=== PATIENT | male | born 1995 | race Caucasian/White ===

== ENCOUNTER 2022-10-15 16:22 | Outpatient (CLI) | payer OTHER, SELFPAY ==
[2022-10-15 16:57] LABS: Basophils Percent Auto 0.7 % (0.2-1.2); Eosinophils Absolute Auto 0.2 K/mm3 (0-0.3); Hematocrit 49.8 % (42.0-52.0); Hemoglobin 17.1 g/dL (14.0-18.0); Immature Granulocyte Absolute 0.01 K/mm3 (0.00-0.031); Immature Granulocyte Percent A 0.2 % (0-0.5); Lymphocytes Absolute Auto 2.27 K/mm3 (0.9-3.2); Lymphocytes Percent Auto 37.5 % (18.3-44.2); Mean Corpuscular HGB Conc 34.3 g/dl (32-36); Mean Corpuscular Volume 84.4 fl (80-100); Mean Platelet Volume 10.4 fl (7.4-10.4); Monocytes Absolute Auto 0.5 K/mm3 (0.1-0.6); Monocytes Percent Auto 8.4 % (2.6-8.5); Neutrophils Percent Auto 50.2 % (45.5-73.1); Platelet Count Result 243 k/mm3 (150-375); Red Cell Distribution Width 12.1 % (11.5-14.5); White Blood Count 6.1 K/mm3 (4.5-10.0)
[2022-10-15 17:07] LABS: Alanine Aminotransferase 77 U/L (6-50); Albumin Level 4.5 g/dL (3.5-5.1); Alkaline Phosphatase 63 U/L (38-126); Anion Gap 6 mmol/L (8-16); Aspartate Amino Transferase 43 U/L (17-59); Bilirubin,Total 0.7 mg/dL (0.2-1.3); Blood Urea Nitrogen 13 mg/dL (9-20); Calcium 9.2 mg/dL (8.4-10.2); Carbon Dioxide 25 mmol/L (22-30); Chloride 105 mmol/L (98-107); Estimated Glomerular Filt Rate > 60; Glucose 85 mg/dL (65-110); Potassium 3.9 mmol/L (3.4-5.0); Sodium 136 mmol/L (137-145)
[2022-10-18 13:40] LABS: Erythropoietin (EPO) 12.2 mIU/mL (2.6-18.5)
== END 2022-10-15 16:23 | disposition home or self-care (01) ==
LOC: ANHLAB 16:27
PROVIDERS: PCP Internal Medicine; Visit Provider Internal Medicine Hematology & Oncology
DX: D75.0 Familial erythrocytosis (principal)
CPT/HCPCS: 36415; 80053; 82668; 85025

== ENCOUNTER 2022-10-30 14:44 | Outpatient (CLI) | payer OTHER, SELFPAY ==
[2022-11-05 11:52] LABS: CALR Exon 9 Mutation Not Detected (Not Detected); CSF3R Exon 14/17 Mutation Not Detected (Not Detected); JAK2 Exon 12 Mutation Not Detected (Not Detected); JAK2 V617F Mutation Not Detected (Not Detected); MPL Exon 10 Mutation Not Detected (Not Detected); Specimen Source Blood
== END 2022-10-30 14:45 | disposition home or self-care (01) ==
LOC: ANHLAB 14:47
PROVIDERS: PCP Internal Medicine; Visit Provider Internal Medicine Hematology & Oncology
DX: D75.0 Familial erythrocytosis (principal)
CPT/HCPCS: 36415; 81219; 81270; 81279; 81339; 81479

== ENCOUNTER 2023-02-13 15:44 | Outpatient (CLI) | payer OTHER, SELFPAY ==
[2023-02-13 15:59] LABS: Basophils Absolute Auto 0.1 K/mm3 (0.0-0.1); Basophils Percent Auto 0.9 % (0.2-1.2); Eosinophils Absolute Auto 0.2 K/mm3 (0-0.3); Eosinophils Percent Auto 2.7 % (0-4.4); Hematocrit 49.5 % (42.0-52.0); Hemoglobin 17.2 g/dL (14.0-18.0); Immature Granulocyte Absolute 0.01 K/mm3 (0.00-0.031); Immature Granulocyte Percent A 0.2 % (0-0.5); Lymphocytes Absolute Auto 1.85 K/mm3 (0.9-3.2); Lymphocytes Percent Auto 33.6 % (18.3-44.2); Mean Corpuscular HGB Conc 34.7 g/dl (32-36); Mean Corpuscular Hemoglobin 29.4 pg (26-34); Mean Corpuscular Volume 84.6 fl (80-100); Mean Platelet Volume 9.8 fl (7.4-10.4); Monocytes Absolute Auto 0.5 K/mm3 (0.1-0.6); Monocytes Percent Auto 8.5 % (2.6-8.5); Neutrophils Percent Auto 54.1 % (45.5-73.1); Platelet Count Result 257 k/mm3 (150-375); Red Blood Count 5.85 M/mm3 (4.6-6.20); Red Cell Distribution Width 11.9 % (11.5-14.5); White Blood Count 5.5 K/mm3 (4.5-10.0)
[2023-02-13 16:03] LABS: Blood Urea Nitrogen 11 mg/dL (8-26); Carbon Dioxide 28 mmol/L (22-30); Chloride 103 mmol/L (98-109); Estimated Glomerular Filt Rate > 60; Glucose 72 mg/dL (70-105); Ionized Calcium (POC) 1.21 mmol/L (1.11-1.31); Potassium 4.2 mmol/L (3.5-4.9); Sodium 143 mmol/L (138-146)
[2023-02-13 17:04] LABS: Alanine Aminotransferase 31 U/L (6-50); Albumin Level 4.4 g/dL (3.5-5.1); Alkaline Phosphatase 64 U/L (38-126); Anion Gap 8 mmol/L (8-16); Aspartate Amino Transferase 26 U/L (17-59); Bilirubin,Total 0.7 mg/dL (0.2-1.3); Blood Urea Nitrogen 11 mg/dL (9-20); Calcium 9.4 mg/dL (8.4-10.2); Carbon Dioxide 27 mmol/L (22-30); Chloride 105 mmol/L (98-107); Estimated Glomerular Filt Rate > 60; Glucose 71 mg/dL (65-110); Potassium 4.3 mmol/L (3.4-5.0); Sodium 140 mmol/L (137-145)
== END 2023-02-13 15:45 | disposition home or self-care (01) ==
LOC: ANHLAB 15:46
PROVIDERS: PCP Internal Medicine; Visit Provider Internal Medicine Hematology & Oncology
DX: D75.0 Familial erythrocytosis (principal)
CPT/HCPCS: 36415; 80047; 80053; 85025

== ENCOUNTER 2023-03-21 08:47 | Outpatient (CLI) | payer OTHER, SELFPAY ==
[2023-03-21 16:02] LABS: Cholesterol 142 mg/dL (0-200); HDL Direct 38 mg/dL; Triglycerides 74 mg/dL (<150)
[2023-03-21 16:13] LABS: LDL Cholesterol Direct 85 mg/dL
[2023-03-21 16:39] LABS: Free T4 Free Thyroxine 1.17 ng/mL (0.78-2.19)
[2023-03-27 05:48] LABS: Triiodothyronine T3 Free 3.6 pg/mL (2.3-4.2)
== END 2023-03-21 08:48 | disposition home or self-care (01) ==
LOC: ANHGOSHLAB 08:50
PROVIDERS: PCP Internal Medicine; Visit Provider Nurse Practitioner
DX: Z13.29 Encounter for screening for other suspected endocrine disorder (principal); Z13.220 Encounter for screening for lipoid disorders
CPT/HCPCS: 36415; 80061; 84439; 84443; 84481

== ENCOUNTER 2023-08-15 15:14 | Outpatient (CLI) | payer OTHER, MEDICAID, SELFPAY ==
[2023-08-15 15:34] LABS: Basophils Percent Auto 0.4 % (0.2-1.2); Eosinophils Absolute Auto 0.1 K/mm3 (0-0.3); Eosinophils Percent Auto 2.6 % (0-4.4); Hematocrit 48.1 % (42.0-52.0); Hemoglobin 16.7 g/dL (14.0-18.0); Immature Granulocyte Absolute 0.01 K/mm3 (0.00-0.031); Immature Granulocyte Percent A 0.2 % (0-0.5); Lymphocytes Absolute Auto 1.84 K/mm3 (0.9-3.2); Lymphocytes Percent Auto 34.7 % (18.3-44.2); Mean Corpuscular HGB Conc 34.7 g/dl (32-36); Mean Corpuscular Hemoglobin 29.3 pg (26-34); Mean Corpuscular Volume 84.5 fl (80-100); Monocytes Absolute Auto 0.4 K/mm3 (0.1-0.6); Monocytes Percent Auto 6.8 % (2.6-8.5); Neutrophils Absolute Auto 2.9 K/mm3 (1.3-6.7); Neutrophils Percent Auto 55.3 % (45.5-73.1); Platelet Count Result 229 k/mm3 (150-375); Red Blood Count 5.69 M/mm3 (4.6-6.20); White Blood Count 5.3 K/mm3 (4.5-10.0)
[2023-08-15 15:41] LABS: Blood Urea Nitrogen 10 mg/dL (9-20); Carbon Dioxide 30 mmol/L (22-30); Chloride 102 mmol/L (98-107); Estimated Glomerular Filt Rate > 60; Glucose 82 mg/dL (65-110); Ionized Calcium (POC) 1.19 mmol/L (1.11-1.31); Potassium 3.8 mmol/L (3.4-5.0); Sodium 142 mmol/L (137-145)
[2023-08-15 18:45] LABS: Alanine Aminotransferase 20 U/L (6-50); Albumin Level 4.6 g/dL (3.5-5.1); Alkaline Phosphatase 60 U/L (38-126); Anion Gap 11 mmol/L (4-12); Aspartate Amino Transferase 26 U/L (17-59); Bilirubin,Total 0.6 mg/dL (0.2-1.3); Blood Urea Nitrogen 10 mg/dL (9-20); Calcium 9.5 mg/dL (8.4-10.2); Carbon Dioxide 24 mmol/L (22-30); Chloride 106 mmol/L (98-107); Estimated Glomerular Filt Rate > 60; Glucose 72 mg/dL (65-110); Potassium 3.8 mmol/L (3.4-5.0); Sodium 141 mmol/L (137-145)
== END 2023-08-15 15:15 | disposition home or self-care (01) ==
LOC: ANHLAB 15:19
PROVIDERS: PCP Internal Medicine; Visit Provider Internal Medicine Hematology & Oncology
DX: D75.0 Familial erythrocytosis (principal)
CPT/HCPCS: 36415; 80047; 80053; 85025

== ENCOUNTER 2024-02-05 11:15 | Outpatient (CLI) | payer MEDICARE, OTHER, MEDICAID, SELFPAY ==
[2024-02-05 11:38] LABS: Hematocrit 49.3 % (42.0-52.0); Hemoglobin 17.3 g/dL (14.0-18.0); Mean Corpuscular HGB Conc 35.1 g/dl (32-36); Mean Corpuscular Hemoglobin 29.1 pg (26-34); Mean Platelet Volume 9.7 fl (7.4-10.4); Platelet Count Result 256 k/mm3 (150-375); Red Blood Count 5.94 M/mm3 (4.6-6.20); Red Cell Distribution Width 12.1 % (11.5-14.5); White Blood Count 5.8 K/mm3 (4.5-10.0)
[2024-02-05 11:41] LABS: Blood Urea Nitrogen 8 mg/dL (8-26); Carbon Dioxide 25 mmol/L (22-30); Chloride 101 mmol/L (98-109); Estimated Glomerular Filt Rate > 60; Glucose 76 mg/dL (70-105); Ionized Calcium (POC) 1.18 mmol/L (1.11-1.31); Potassium 3.7 mmol/L (3.5-4.9); Sodium 139 mmol/L (138-146)
[2024-02-05 13:36] LABS: Alanine Aminotransferase 20 U/L (6-50); Albumin Level 4.6 g/dL (3.5-5.1); Alkaline Phosphatase 63 U/L (38-126); Anion Gap 5 mmol/L (4-12); Aspartate Amino Transferase 24 U/L (17-59); Bilirubin,Total 1.1 mg/dL (0.2-1.3); Blood Urea Nitrogen 10 mg/dL (9-20); Calcium 9.3 mg/dL (8.4-10.2); Carbon Dioxide 27 mmol/L (22-30); Chloride 104 mmol/L (98-107); Estimated Glomerular Filt Rate > 60; Glucose 77 mg/dL (65-110); Potassium 3.8 mmol/L (3.4-5.0); Sodium 136 mmol/L (137-145)
== END 2024-02-05 11:16 | disposition home or self-care (01) ==
LOC: ANHLAB 11:20
PROVIDERS: PCP Internal Medicine; Visit Provider Internal Medicine Hematology & Oncology
DX: D75.0 Familial erythrocytosis (principal)
CPT/HCPCS: 36415; 80047; 80053; 85027

== ENCOUNTER 2024-08-05 11:17 | Outpatient (CLI) | payer OTHER, MEDICARE, MEDICAID, SELFPAY ==
[2024-08-05 11:29] LABS: Basophils Percent Auto 0.6 % (0.2-1.2); Eosinophils Absolute Auto 0.1 K/mm3 (0-0.3); Eosinophils Percent Auto 2.1 % (0-4.4); Hematocrit 48.6 % (42.0-52.0); Immature Granulocyte Absolute 0.01 K/mm3 (0.00-0.031); Immature Granulocyte Percent A 0.2 % (0-0.5); Lymphocytes Absolute Auto 1.51 K/mm3 (0.9-3.2); Mean Corpuscular Hemoglobin 29.5 pg (26-34); Mean Corpuscular Volume 84.4 fl (80-100); Mean Platelet Volume 9.7 fl (7.4-10.4); Monocytes Absolute Auto 0.4 K/mm3 (0.1-0.6); Monocytes Percent Auto 8.3 % (2.6-8.5); Neutrophils Absolute Auto 2.7 K/mm3 (1.3-6.7); Neutrophils Percent Auto 56.8 % (45.5-73.1); Platelet Count Result 221 k/mm3 (150-375); Red Blood Count 5.76 M/mm3 (4.6-6.20); Red Cell Distribution Width 11.9 % (11.5-14.5); White Blood Count 4.7 K/mm3 (4.5-10.0)
--- OUTSIDE RECORDS SUMMARY | 2024-08-05 13:26 | XMS_ITS | Clinical Summary ---
Author Organization [facility] Address [address] [place] [address] Care Team Providers Care Despatching And Receiving Clerk Name Role Phone Halima Oviedo MD Primary Care Provider [phone] Source Comments [facility],non-owned Affiliates and Associated Physician Practices is amultiple site organization consisting of ambulatory clinics and hospital sitesin [place], [place], [place] and [place]. This disclosure is being madepursuant to the Care Everywhere program and may not contain all information available regarding this patient. Last updated 17.[facility] Allergies No known active allergies Medications * Be aware that medications may not be up to date on this document. Alwaysverify current medications with the patient. 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 Gender Identity Not on file Sexual Orientation Not on file Plan of Treatment Health Maintenance Due Date Last Done Comments HIV SCREENING 2012 HPV VACCINE (1 - Male 3-dose series) 2012 HEPATITIS C SCREENING 10/05/2015 DTAP/TDAP/TD VACCINES (1 - Tdap) 2016 HEPATITIS B VACCINE (1 of 3 - 19+ 3-dose series) 2016 COVID-19 VACCINE (1 - 2023-2 5 season) 2023 DEPRESSION SCREENING 02/26/2024 INFLUENZA VACCINE (Season Ended) 2024 ZOSTER VACCINE (1 of 2) 10/10/2047 HIB VACCINE Aged Out No longer eligi ble based on patient's age to complete this topic MENINGOCOCCAL (Group B) VACC INE SHARED DECISION-MAKING Aged Out No longer eligibl e based on patient's age to complete this topic MENINGOCOCCAL GROUPS A/C/Y/W VACCINE Aged Out No longer eligible b ased on patient's age to complete this topic PNEUMOCOCCAL VACCINE Aged Out No long er eligible based on patient's age to complete this topic Care Teams Despatching And Receiving Clerk Relationship Specialty Start Date End Date Halima Oviedo MD [address] [place] [phone] PCP - General 08/15/10
--- OUTSIDE RECORDS SUMMARY | 2024-08-05 13:26 | XMS_ITS | Encounter Summary ---
Author Organization [facility] Address [address] [place] [address] Care Team Providers Care Timber Spotter Name Role Phone MarizolSaman morrison Jesús Primary Care Provider Reason for Visit * Reason Comments Follow Up Encounter Details Date Type Department Care Team (Late st Contact Info) Description 08/05/2024 11:45 AM CDT Office Visit [facility] Oncology and Hematology - [place] [address] [place] [address] [facility] [address] [place] [address] Osman Carrasquillo MD [address] [facility] [address] [place] [address] Polycythemia, familial (Primary Dx) Social History Tobacco Use Types Packs/Day Years Used Date Smoking Tobacco: Never Smokeless Tobacco: Never Tobacco Cessation:Counseling Given: Not Answered Alcohol Use Standard Drinks/Week Comments Never 0 (1 standard drink = 0.6 oz pur e alcohol) Sex and Gender Information Value Date Recorded Sex Assigned at Not on file 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 Gender Identity Not on file Sexual Orientation Not on file documented as of this encounter Last Filed Vital Signs Vital Sign Reading Time Taken Comments Blood Pressure 108/73 08/05/2024 11:34 AM CDT Pulse 67 08/05/2024 11:34 AM CDT Temperature 36.2 C (97.1 F) 08/05/2024 11:34 AM CDT Respiratory Rate 15 08/05/2024 11:3 4 AM CDT Oxygen Saturation 97% 08/05/2024 11: 34 AM CDT Inhaled Oxygen Concentration - - Weight 104.1 kg (229 lb 9.6 oz) 025 11:34 AM CDT Height - - Body Mass Index 32.94 10/15/2022 3:01 PM CDT documented in this encounter Progress Notes * Osman Carrasquillo MD - 08/05/2024 12:07 PM CDT HEMATOLOGY / ONCOLOGY PROGRESS NOTE Patient Identification: Name: Travis Pedro Age: 28 y.o. Sex: male : 1995 DIAGNOSIS Secondary erythrocytosis CURRENT TREATMENT Baby aspirin TREATMENT HISTORY SUBJECTIVE Patient came to the office for follow-up visit. He has lost 14 pound weight intentionally. Denies any chest pain and shortness of breath. No bleeding and bruising. No other new complaints. Review of system Constitutional: Patient did not mention fevers, sweats,14 pound weight loss without any tiredness and fatigue HEENT: Patient did not mention sinus congestion, hearing or vision problems Respiratory: Patient did not mention cough, dyspnea, wheeze Cardiovascular: Patient did not mention chest pain, exertional chest pressure/discomfort, nausea, syncope, shortness of breath GI: Patient did not mention constipation, diarrhea, dsyphagia, reflux symptoms, vomiting, melena : Patient did not mention dysuria, frequency, incontinence, urgency Integumentary system: no lymphadenopathy, sweats, flushing Musculoskeletal: Patient not mention: myalgia, arthralgia Neurological: Patient did not mention blurry or disturbed vision, numbness/weakness, dizziness Skin: No lumps, bumps or rashes. 12 point review of system was reviewed Objective: Vital signs in last 24 hours: As per nursing note Exam: General appearance: alert, cooperative, no distress, appears stated age Head: normocephalic, without obvious abnormality, atraumatic Eyes: conjunctivae/corneas clear, EOM's intact Ears: normal external ear canals AU Nose: Nares normal. Septum midline. Mucosa normal. No drainage or sinus tenderness Throat: Lips, mucosa, and tongue normal. Teeth and gums normal Neck: supple, symmetrical, trachea midline. Lungs: clear to auscultation bilaterally Heart: regular rate and rhythm, S1, S2 normal, no murmur, click, rub or gallop Abdomen: soft, non-tender. Bowel sounds normal. No masses, No organomegaly Extremities: extremities normal, atraumatic, no cyanosis or edema Skin: Skin color, texture, turgor normal. No rashes or lesions Lymph nodes: No lymphadenopathy Neuro: No obvious focal deficit Exam as above PATH LABS Labs from October 15 showed WBC 6.1 hemoglobin 17.1 hematocrit 49.8 platelet 243,000 erythropoietin 12.2 JAK2 mutation negative ALT elevated at 77 Labs from August 14 show WBC 5.3 hemoglobin 16.7 hematocrit 48.1 platelet 229,000 Labs from February 04 showed creatinine 0.8 WBC 5.8 hemoglobin 17.3 hematocrit 49.3 platelet 256,000 Labs from August 05 showed WBC 4.7 hemoglobin 17 hematocrit 48.6 platelet 221,000 Assessment: Plan: There are no active problems to display for this patient. Secondary erythrocytosis. JAK2 mutation negative. Denies any history of COPD and smoking. Denies any history of sleep apnea and testosterone replacement therapy. Could be secondary to obesity. Patient has lost 14 pound weight intentionally. Labs showed improvement in the hematocrit now down to 48.6. No need for phlebotomy. Continue baby aspirin. I recommended regular exercise and weight loss. Follow-up with me on a yearly basis. Elevated liver enzymes. Patient has been losing weight. Will repeat labs again in 1 year. 08/05/2024 Osman Carrasquillo MD documented in this encounter Plan of Treatment Upcoming Encounters Date Type Department Care Team (Late st Contact Info) Description 08/11/2025 10:00 AM CDT Office Visit [facility] Oncology and Hematology - [place] [address] [facility] [address] [place] [address] Osman Carrasquillo MD [address] [facility] [address] [place] [address] Scheduled Orders Name Type Priority Associated Diagnoses Orde r Schedule CBC WITHOUT DIFFERENTIAL Lab Stat Polycythemia, familial Expected: 08/05/2025, Expires: 08/05/2025 BASIC METABOLIC PANEL Lab Stat Polycythemia, familial Expected: 08/05/2025, Expires: 08/05/2025 documented as of this encounter Visit Diagnoses Diagnosis Polycythemia, familial- Primary Familial polycythemia documented in this encounter Care Teams Timber Spotter Relationship Specialty Start Date End Date Saman Romero DO [address] [address] PCP - General Internal Medicine 10/15/22 documented as of this encounter
--- OUTSIDE RECORDS SUMMARY | 2024-08-05 13:26 | XMS_ITS | Clinical Summary ---
Author Organization [facility] Address [address] [place] [address] Care Team Providers Care Silk Crepe Machine Operator Name Role Phone NickSaman Jesús Primary Care Provider Allergies No known active allergies Medications aspirin (ECOTRIN EC) 81 mg Tablet, Delayed Release (E.C.) Take 81 mg by mouth daily. Active Active Problems No known active problems Encounters Date Type Department Care Team Description 08/05/2024 11:45 AM CDT Office Visit [facility] Oncology and Hematology - [place] [address] [facility] [address] [place] [address] Osman Carrasquillo MD Polycythemia, familial (Primary Dx) 07/16/2024 External Device Data ST[facility] ABSTRACTION Provider, Abstract 07/15/2024 External Device Data ST[facility] ABSTRACTION Provider, Abstract from Last 3 Months Family History Relation Name Status Comments Brother Alive Father Alive Mother Alive Social History Tobacco Use Types Packs/Day Years Used Date Smoking Tobacco: Never Smokeless Tobacco: Never Tobacco Cessation:Counseling Given: Not Answered Alcohol Use Standard Drinks/Week Comments Never 0 (1 standard drink = 0.6 oz pur e alcohol) Sex and Gender Information Value Date Recorded Sex Assigned at Not on file 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 Gender Identity Not on file Sexual Orientation Not on file Last Filed Vital Signs Vital Sign Reading [...] 9.6 oz) 025 11:34 AM CDT Height 177.8 cm (5' 10) 10/15/2022 3:01 PM CDT Body Mass Index 32.94 10/15/2022 3:01 PM CDT Plan of Treatment Upcoming Encounters Date Type Department Care Team (Late st Contact Info) Description 08/11/2025 10:00 AM CDT Office Visit [facility] Oncology and Hematology - [place] [address] [facility] [address] [place] [address] Osman Carrasquillo MD [address] [facility] [address] [place] [address] Health Maintenance Due Date Last Done Comments HPV VACCINES (1 - Male 3-dose series) 2012 DTAP/TDAP/TD VACCINES (1 - Tdap) 2016 HEPATITIS B VACCINES (1 of 3 - 19+ 3-dose series) 09/25 Traditional Medicare (ACO) Annual Wellness Visit 10/09 INFLUENZA VACCINE (#1) 2023 Insurance [employer] [facility] [id number] MEDICAID [place] MEDICARE PART A AND B Care Teams Silk Crepe Machine Operator Relationship Specialty Start Date End Date Saman Romero DO [address] [address] PCP - General Internal Medicine 10/15/22
== END 2024-08-05 11:18 | disposition home or self-care (01) ==
LOC: ANHLAB 11:18
PROVIDERS: PCP Nurse Practitioner; Visit Provider Internal Medicine Hematology & Oncology
DX: D75.0 Familial erythrocytosis (principal)
CPT/HCPCS: 36415; 85025